=== PATIENT | male | born 1980 | race Caucasian/White ===

== ENCOUNTER 2017-09-07 11:55 | Emergency (ER) | payer OTHER ==
[~2017-09-07] VITALS: Ht 177.8 cm; Wt 72.0 kg
[~2017-09-07 11:55] MED LIST: Z.0.NO CURRENT MEDS; ZITH250T PO
[2017-09-07 11:59] VITALS: BP 131/64; PULSE 71; RESP 16; TEMP 97.6; O2SAT 100
[2017-09-07 12:18] LABS: BILIRUBIN, URINE NEG (NEG); BLOOD, URINE NEG (NEG); GLUCOSE,URINE NEG (NEG); KETONE, URINE NEG (NEG); NITRITE,URINE NEG (NEG); URINE COLOR YELLOW (YELLW/STRAW); URINE LEUKOCYTE ESTERASE NEG (NEG)
[2017-09-07 12:28] LABS: AMORPHOUS SEDIMENT, URINE MOD; RBC, URINE 0-3 /hpf (0-3); SQUAMOUS EPITHELIAL CELL URINE 0-5 /hpf (0-5)
--- NOTE | 2017-09-07 13:04 | PD ---
HPI Chief Complaint: Complaint Time Seen by Provider: 13:01 Travel History International Travel<30 days: No Contact w/Intl Traveler<30days: No Traveled to known affect area: No History of Present Illness HPI Patient presents with complaints of dull constant left groin discomfort. Initially felt the pain approximately 6 weeks ago after some heavy lifting. States that it did get better but has persisted. Pain is 2 out of 10. Denies any nausea or vomiting. Normal urination and bowels. No aggravating or alleviating factors. PFSH Past Medical History Medical History: Denies Significant Hx Diminished Hearing: No Influenza Vaccination: No ?: Not Past Surgical History Other Surgery: Yes (HX OF PNEUMOTHORAX WITH CHEST TUBE INSERTION) Social History Alcohol Use: Yes (2 beers/night) Tobacco Use: Yes (E-Cig) Substance Use: No Allergies-Medications (Allergen,Severity, Reaction): Coded Allergies: penicillin G (Unverified Allergy, Severe, Hives, 09/07/17) Reported Meds & Prescriptions Reported Meds & Active Scripts Active No Active Prescriptions or Reported Medications Review of Systems General / Constitutional: No: Fever Eyes: No: Visual changes HENT: No: Headaches Cardiovascular: No: Chest Pain or Discomfort Respiratory: No: Shortness of Breath Gastrointestinal: No: Abdominal Pain Genitourinary: No: Dysuria Musculoskeletal: No: Pain Skin: No Rash Neurologic: No: Weakness Psychiatric: No: Depression Endocrine: No: Polydipsia Hematologic/Lymphatic: No: Easy Bruising Physical Exam Narrative GENERAL: Well-nourished, well-developed patient. SKIN: Focused skin assessment warm/dry. HEAD: Normocephalic. EYES: No scleral icterus. No injection or drainage. NECK: Supple, trachea midline. No JVD or lymphadenopathy. CARDIOVASCULAR: Regular rate and rhythm without murmurs, gallops, or rubs. RESPIRATORY: Breath sounds equal bilaterally. No accessory muscle use. GASTROINTESTINAL: Abdomen soft, non-tender, nondistended. MUSCULOSKELETAL: No cyanosis, or edema. BACK: Nontender without obvious deformity. No CVA tenderness. Left inguinal hernia palpated Data Data Last Documented VS Vital Signs Date Time Temp Pulse Resp B/P (MAP) Pulse Ox O2 Delivery O2 Flow Rate FiO2 09/07/17 11:59 97.6 71 16 131/64 (86) 100 Orders Orders Urinalysis - C+S If Indicated (09/07/17 12:01) Mandatory Outpatient Referral (09/07/17 13:04) Labs Laboratory Tests Test 09/07/17 12:00 Urine Collection Type CLEAN CATCH Urine Color YELLOW Urine Turbidity CLEAR Urine pH 7.0 Urine Specific [place] 1.020 Urine Protein NEG mg/dL Urine Glucose (UA) NEG mg/dL Urine Ketones NEG mg/dL Urine Occult Blood NEG Urine Nitrite NEG Urine Bilirubin NEG Urine Urobilinogen 0.2 MG/DL Urine Leukocyte Esterase NEG Urine RBC 0-3 /hpf Urine Squamous Epithelial Cells 0-5 /hpf Urine Amorphous Sediment MOD Microscopic Urinalysis Comment CULT NOT INDICATED Urine Collection Time 1200 MDM Medical Decision Making Medical Screen Exam Complete: Yes Emergency Medical Condition: Yes Differential Diagnosis Inguinal hernia, hydrocele, cystocele, groin strain Narrative Course Assessment and plan discussed with patient and at bedside. Mandatory referral for surgery placed since he does not have a PCP Diagnosis Primary Impression: Left inguinal hernia Patient Instructions: General Instructions Additional Instructions: Motrin or Tylenol for discomfort, encouraged to avoid heavy lifting, encourage Valsalva. Keep stool soft and regular. Follow-up with surgery. Return to the emergency room with any onset of new symptoms per Med/Other Pt SpecificInfo: No Meds Exist/No RX given Scripts No Active Prescriptions or Reported Meds Disposition: 01 DISCHARGE HOME Condition: Yosef Garcia MD Sep 07, 2017 13:04
[2017-09-07 13:22] VITALS: BP 126/60; PULSE 70; RESP 18; O2SAT 99
== END 2017-09-07 13:23 | disposition home or self-care (01) ==
LOC: PHED 11:55
DX: K40.90 Unilateral inguinal hernia, without obstruction or gangrene, not specified as recurrent (principal); Z72.0 Tobacco use
CPT/HCPCS: 81001; 99283